=== PATIENT | female | born 1945 | race Caucasian/White ===

== ENCOUNTER 2019-08-25 07:55 | Outpatient (CLI) | payer MEDICARE, SELFPAY ==
[2019-08-25 09:52] LABS: Cortisol Baseline 6.02 ug/dL
== END 2019-08-25 07:56 | disposition home or self-care (01) ==
PROVIDERS: Visit Provider Internal Medicine Endocrinology, Diabetes & Metabolism
DX: R94.7 Abnormal results of other endocrine function studies (principal)
CPT/HCPCS: 36415; 82533; 96372; J0834

== ENCOUNTER 2020-01-27 16:15 | Emergency (ER) | payer MEDICARE, SELFPAY ==
[2020-01-27 16:27] VITALS: BP 100/52; PULSE 71; RESP 18; TEMP 36.1; O2SAT 100
--- NOTE | 2020-01-27 16:30 | ECG_ITS ---
Measurements Intervals [place] Rate: 65 P: 43 HI: 140 QRS: -9 QRSD: 78 T: 31 QT: 377 QTc: 393 Interpretive Statements SINUS RHYTHM BASELINE WANDER- V1 NORMAL ECG Electronically Signed On 01-27-2020 16:37:16 CDT by Jefferson Khoury D.O.
[2020-01-27 16:42] LABS: Basophils Percent Auto 0.6 % (0.2-1.2); Eosinophils Absolute Auto 0.1 K/mm3 (0-0.3); Eosinophils Percent Auto 0.7 % (0-4.4); Hematocrit 38.5 % (37.0-47.0); Hemoglobin 12.5 g/dL (12.0-15.0); Immature Granulocyte Absolute 0.02 K/mm3 (0.00-0.031); Immature Granulocyte Percent A 0.3 % (0-0.5); Lymphocytes Absolute Auto 2.18 K/mm3 (0.9-3.2); Lymphocytes Percent Auto 31.2 % (18.3-44.2); Mean Corpuscular HGB Conc 32.5 g/dl (32-36); Mean Corpuscular Hemoglobin 30.3 pg (26-34); Mean Corpuscular Volume 93.2 fl (80-100); Mean Platelet Volume 10.2 fl (7.4-10.4); Monocytes Absolute Auto 0.5 K/mm3 (0.1-0.6); Monocytes Percent Auto 7.7 % (2.6-8.5); Neutrophils Absolute Auto 4.2 K/mm3 (1.3-6.7); Neutrophils Percent Auto 59.5 % (45.5-73.1); Platelet Count Result 232 k/mm3 (150-375); Red Blood Count 4.13 M/mm3 (4.2-5.4); Red Cell Distribution Width 15.1 % (11.5-14.5)
[2020-01-27 16:54] LABS: Anion Gap 6 mmol/L (8-16); Blood Urea Nitrogen 23 mg/dL (7-17); Calcium 9.6 mg/dL (8.4-10.2); Carbon Dioxide 27 mmol/L (22-30); Chloride 107 mmol/L (98-107); Estimated Glomerular Filt Rate 40; Glucose 133 mg/dL (65-105); Potassium 3.8 mmol/L (3.4-5.0); Sodium 140 mmol/L (137-145)
--- NOTE | 2020-01-27 17:28 | PC.NURSE ---
Pt and daughter up to desk report that they are leaving and going to [facility], where they have a few beds open. Pt and daughter ambulatory without complaints.
== END 2020-01-27 17:28 | disposition left against medical advice (07) ==
PROVIDERS: Emergency Provider Emergency Medicine
DX: R55 Syncope and collapse (principal)
CPT/HCPCS: 36415; 80048; 85025; 93005; 99199